=== PATIENT | male | born 1955 | race Caucasian/White ===

== ENCOUNTER → 2019-07-14 | Outpatient (CLI) | payer OTHER ==
--- NOTE | 2019-07-15 09:11 | RADIOLOGY REPORT (SQ) ---
EXAM DESCRIPTION: CT SOFT TISSUE NECK WITH COMPLETED DATE/TIME: 07/14/2019 3:38 pm REASON FOR STUDY: K11.6 MUCOCELE OF SALIVARY GLAND K11.6 MUCOCELE OF SALIVARY GLAND COMPARISON: None. TECHNIQUE: Post IV contrasted scanning from skull base through lung apices with review of bone, soft tissue and lung windows. Reconstructed coronal and sagittal MPR images reviewed. All images stored on PACS. All CT scanners at this facility use dose modulation, iterative reconstruction, and/or weight based d osing when appropriate to reduce radiation dose to as low as reasonably achievable (ALARA). [facility]: Dose Right [facility]: CareDose [facility]: Dose Right [facility]: Teradose 4D [facility]: [employer] CONTRAST TYPE AND DOSE: contrast/concentration: Isovue 350.00 mg/ml; Total Contrast Delivered: 75.0 ml; Total Saline Delivered: 55.0 ml RENAL FUNCTION: Creatinine 0.9 RADIATION DOSE: 23.1 mGy . LIMITATIONS: No comparison imaging of any kind is available FINDINGS: SKULL BASE: Intact. MAJOR SALIVARY GLANDS: The right parotid gland is normal in size. No discrete primary parotid cyst o r mass. No salivary calculi within the gland or along [place]'s duct. Along the dorsal aspect super ficial lobe of the parotid, periparotid lymph nodes are present 1.8 x 1.7 x 1.4 cm in size (axial mars ge 37/113) and 1.2 x 1.1 x 0.9 cm in size (axial image 35/113). The left parotid gland is normal in size. No discrete primary parotid cyst or mass. No salivary hitesh culi within the gland or along Isabel's duct. Along the dorsal aspect superficial lobe of the parot id, periparotid lymph nodes are present 2 x 1.6 x 1 cm in size (axial image 35/113) and 8 x 6 x 4 mm in size (axial image 38/113). Bilateral submandibular glands are normal in size. No ductal dilatation or submandibular gland/ duct stones. Sublingual glands are unremarkable. No calculi or dilated ducts. No floor of mouth cyst. LYMPHADENOPATHY: Mildly enlarged bilateral periparotid lymph nodes as above MUCOSAL MASSES OR ASYMMETRY: No mucosal masses or asymmetry. LARYNX/CORDS: No abnormal findings. VASCULAR STRUCTURES: Post right carotid endarterectomy without recurrent stenosis along the proximal right ICA. Remainder of the right cervical carotid system is unremarkable. On the left side, the common carotid artery patent. At the bifurcation, mixed calcific and noncalcif ic plaque causes an irregular 2 cm long stenosis of the proximal left ICA. There is a web-like narro wing causing greater than 50% stenosis, best shown on axial image 43/113 and coronal reconstruction i mage 68/142. Correlation with velocities on carotid Doppler recommended, this web-like narrowing cou ld be underestimated by CT. Remainder of the left cervical internal carotid artery is patent. Bilateral patent vertebral arteries, codominant. LUNG APICES: Clear. BONES: Intact. THYROID: Normal size. 12 by 8 mm complex cyst versus nodule right midpole thyroid axial image 75/113 . PARANASAL SINUSES: Clear. OTHER: No other significant finding. IMPRESSION: Enlarged bilateral periparotid lymph nodes. No primary intraparotid mass is identified. Possible flow significant stenosis at the left proximal ICA related to long segment irregular plaque. Correlation with carotid Doppler is recommended, web-like narrowing could be underestimated by CT. TECHNICAL DOCUMENTATION: JOB ID: [id number] Quality ID # [id number]: Final reports with documentation of one or more dose reduction techniques (e.g., Au tomated exposure control, adjustment of the mA and/or kV according to patient size, use of iterative reconstruction technique) 2010 [employer]- All Rights Reserved Reading location - IP/workstation name: [email or web address]
== END ==
LOC: RAD 15:32
PROVIDERS: ATTEND Otolaryngology
DX: K11.6 Mucocele of salivary gland (principal)
CPT/HCPCS: 70491; 82565

== ENCOUNTER → 2019-08-04 | Day surgery (SDC) | payer OTHER | LOC: RAD 13:05 | PROVIDERS: ATTEND Otolaryngology | DX: K11.6 Mucocele of salivary gland (principal) | CPT/HCPCS: 10005; 10006; 88173; 88305 ==